=== PATIENT | male | born 1995 | race African-American/Black ===

== ENCOUNTER 2024-04-18 16:27 | Inpatient (IN) ==
[2024-04-18] MEDS: Lactated Ringers SEPSIS* BAG 2,040 ML IV ONE (17:32)
[2024-04-18] MEDS: Acetaminophen IV 1 GM/100ML 1,000 MG/100 ML BAG IV ONE (17:43)
[2024-04-18] MEDS: Piperacillin/Tazobac 3.375 BAG 3.375 GM/100 ML BAG IV ONE (17:43)
[2024-04-18 17:51] LABS: ABS Lymphocytes 1.2 10^3/uL (1.0-4.8); ABS Monocytes 0.7 10^3/uL (0.0-1.1); ABS Neutrophils 10.3 10^3/uL (1.5-7.6); Hematocrit 37.5 % (38-53); Hemoglobin 12.8 g/dL (13.2-16.3); Lymphocyte % 9.9 %; Mean Corpuscular Hemoglobin 31.7 pg (27-33); Mean Corpuscular Hgb Conc 34.2 g/dL (31-36); Mean Corpuscular Volume 92.7 fL (80-97); Mean Platelet Volume 10.1 fL (7.5-11.2); Platelet Count 250 10^3/uL (150-450); Red Blood Count 4.05 10^6/uL (4.06-5.63); Red Cell Distribution Width 14.4 % (12-17); White Blood Count 12.2 10^3/uL (3.6-10.2)
[2024-04-18] MEDS ORDERED: Vancomycin 1,000 MG in NS 0.9% 250 ml 250 ML IVPB SCH (18:00)
[2024-04-18 18:05] LABS: INR 1.43 (0.85-1.14)
[2024-04-18 18:29] LABS: Urine Appearance Clear; Urine Bilirubin Negative (Negative); Urine Blood Negative (Negative); Urine Color Yellow; Urine Glucose Negative (Negative); Urine Ketones 1+ (Negative); Urine Nitrite Negative (Negative); Urine Protein 1+ (>=30 mg/dL) (Negative); Urine Specific Gravity 1.024 (1.002-1.030); Urine Urobilinogen 2+ (Negative)
[2024-04-18 18:30] LABS: Anion Gap 11 mmol/L (2-16); Blood Urea Nitrogen 12 mg/dL (6-24); C Reactive Protein 29.47 mg/L (<8.01); CO2 Carbon Dioxide 24 mmol/L (22-32); Chloride 94 mmol/L (101-111); Creatinine, Serum 1.01 mg/dL (0.67-1.17); Glucose 74 mg/dL (70-100); Potassium 3.5 mmol/L (3.5-5.0); Sodium 129 mmol/L (135-145); Urine Bacteria Absent /HPF (Absent); Urine Red Blood Cell Trace(0-2/hpf) /HPF (0-Trace); Urine Squamous Epithelial Cell Present /HPF (Absent); Urine White Blood Cell Trace(0-5/hpf) /HPF (0-Trace); eGFR CKD-EPI 102.6 (>60)
[2024-04-18 18:38] LABS: ALT 31 U/L (7-52); AST 73 U/L (13-39); Albumin 4.1 g/dL (3.2-5.2); Albumin/Globulin Ratio 0.7 (1-3); Alkaline Phosphatase 45 U/L (35-149); Lipase < 10 U/L (11.0-82.0); Magnesium 0.9 mg/dL (1.9-2.7); Total Bilirubin 3.9 mg/dL (0.2-1.0); Total Protein 10.1 g/dL (6.4-8.9)
[2024-04-18] MEDS: Iohexol 350 (CONTRAST) 500 ML MDV IV ONE (18:57)
[2024-04-18 19:26] LABS: High Sensitivity Troponin 1 Hr 6 pg/mL (<20)
[2024-04-18] MEDS: Magnesium Sulfate 2 gm BAG 2 GM/50 ML BAG IVPB ONE (19:38)
[2024-04-18] MEDS: Vancomycin 1000 MG in NS 0.9% 250 ML IVPB ONE (19:43)
[2024-04-18] MEDS: Lactated Ringers 1000 ml BAG 1,000 ML IV ONE (22:58)
[2024-04-19] MEDS: Enoxaparin 40 MG/0.4 ML SYR SUBCUT SCH (00:43)
[2024-04-19] MEDS: Lactated Ringers 1000 ml BAG 1,000 ML IV SCH (01:37)
[2024-04-19] MEDS: cefTRIAXone 2 gm/50 mL D5W 2 GM/50 ML BAG IV SCH (01:43)
[2024-04-19] MEDS: Acetaminophen IV 1 GM/100ML 1,000 MG/100 ML BAG IV SCH (01:57)
[2024-04-19] MEDS: Magnesium Sulf 4 GM/100 ML IV 4,000 MG/100 ML BAG IVPB ONE (08:37)
[2024-04-19 09:35] LABS: Creatinine, Serum 0.9 mg/dL (0.67-1.17); Magnesium 1.3 mg/dL (1.9-2.7); Potassium 3.9 mmol/L (3.5-5.0); eGFR CKD-EPI 117.8 (>60)
[2024-04-19 12:25] LABS: Hematocrit 36.7 % (38-53); Hemoglobin 11.9 g/dL (13.2-16.3); Mean Corpuscular Hemoglobin 30.6 pg (27-33); Mean Corpuscular Hgb Conc 32.5 g/dL (31-36); Mean Corpuscular Volume 94.2 fL (80-97); Mean Platelet Volume 10.3 fL (7.5-11.2); Platelet Count 205 10^3/uL (150-450); Red Cell Distribution Width 14.8 % (12-17); White Blood Count 11.3 10^3/uL (3.6-10.2)
[2024-04-19 13:04] LABS: ABS Lymphocytes 5.3 10^3/uL (1.0-4.8); ABS Monocytes 0.9 10^3/uL (0.0-1.1); ABS Neutrophils 5.1 10^3/uL (1.5-7.6); ABS Nucleated RBC 0.07 10^3/ul; Lymphocyte % 46.6 %; Nucleated Red Blood Cells % 0.6 %/100WBC (0.0-0.8); RBC Morphology Normal (Normal)
[2024-04-19] MEDS: metroNIDAZOLE IV 500 MG/100ML 500 MG/100 ML BAG IVPB SCH (13:12)
[2024-04-19] MEDS: NF:Bictegravir/Emtricit/Tenofov 1 TABLET PO SCH (13:17)
[2024-04-19 17:40] LABS: Hepatitis C Antibody Reactive (Negative)
[2024-04-19] MEDS: PEG 3000 GI LAVAGE 1 GALLON PO ONE (17:46)
[2024-04-19 18:23] LABS: Albumin 3.2 g/dL (3.2-5.2); Albumin/Globulin Ratio 0.7 (1-3); Direct Bilirubin 0.7 mg/dL (0.03-0.18); Globulin 4.8 g/dL (2-4); Indirect Bilirubin 2.4 mg/dL (0.3-1.0); Total Bilirubin 3.1 mg/dL (0.2-1.0)
[2024-04-20] MEDS: cefTRIAXone 2 gm/50 mL D5W 2 GM/50 ML BAG IV SCH (03:01)
[2024-04-20 05:51] LABS: Hematocrit 29.9 % (38-53); Mean Corpuscular Hemoglobin 31.2 pg (27-33); Mean Corpuscular Hgb Conc 33.3 g/dL (31-36); Mean Corpuscular Volume 93.7 fL (80-97); Mean Platelet Volume 10.1 fL (7.5-11.2); Platelet Count 191 10^3/uL (150-450); Red Blood Count 3.19 10^6/uL (4.06-5.63); Red Cell Distribution Width 14.8 % (12-17); White Blood Count 9.2 10^3/uL (3.6-10.2)
[2024-04-20 06:06] LABS: Albumin 2.8 g/dL (3.2-5.2); Albumin/Globulin Ratio 0.6 (1-3); Calcium 7.8 mg/dL (8.6-10.3); Creatinine, Serum 0.77 mg/dL (0.67-1.17); Globulin 4.4 g/dL (2-4); Magnesium 1.6 mg/dL (1.9-2.7); Potassium 3.5 mmol/L (3.5-5.0); Total Bilirubin 1.7 mg/dL (0.2-1.0); Total Protein 7.2 g/dL (6.4-8.9); eGFR CKD-EPI 123.5 (>60)
[2024-04-20 08:36] LABS: ABS Lymphocytes 3.4 10^3/uL (1.0-4.8); ABS Monocytes 0.6 10^3/uL (0.0-1.1); ABS Neutrophils 5.1 10^3/uL (1.5-7.6); ABS Nucleated RBC 0.02 10^3/ul; Eosinophil % 0.1 %; Lymphocyte % 36.8 %; Nucleated Red Blood Cells % 0.3 %/100WBC (0.0-0.8); RBC Morphology Normal (Normal)
[2024-04-20] MEDS: Magnesium Sulfate 2 gm BAG 2 GM/50 ML BAG IVPB ONE (09:38)
[2024-04-20] MEDS ORDERED: Lidocaine 2% PF 5 ML VIAL ONE (12:26)
[2024-04-20] MEDS ORDERED: Propofol 10 MG/ML 20 ML BTL ONE (13:20)
[2024-04-20 17:18] LABS: % CD3 84 % (58-86); % CD4 21 % (32-64); % CD8 60 % (15-40); 4/8 H/S Ratio 0.4 (>=0.9); CD3 2018 cells/mcL (550-2202); CD4 507 cells/mcL (365-1437); CD8 1434 cells/mcL (171-846)
[2024-04-20 18:57] LABS: Adenovirus F40/41 Negative (Negative); Astrovirus Negative (Negative); Cryptosporidium species Negative (Negative); Cyclospora cayetanensis Negative (Negative); Entamoeba histolytica Negative (Negative); Enteroaggregative E.coli(EAEC) Negative (Negative); Enteropathogenic Ecoli(EPEC) Negative (Negative); Enterotoxigenic Ecoli(ETEC) Negative (Negative); Norovirus GI/GII Negative (Negative); Plesiomonas shigelloides Negative (Negative); Salmonella species Negative (Negative); Sapovirus Negative (Negative); Shiga toxin producing E. coli Negative (Negative); Shigella/Enteroinvasive E.coli Positive (Negative); Specimen Source STOOL; Vibrio cholerae Negative (Negative); Yersinia species Negative (Negative)
[2024-04-21 05:51] LABS: Hematocrit 26.7 % (38-53); Mean Corpuscular Hemoglobin 31.7 pg (27-33); Mean Corpuscular Hgb Conc 33.8 g/dL (31-36); Mean Corpuscular Volume 93.8 fL (80-97); Mean Platelet Volume 9.9 fL (7.5-11.2); Platelet Count 218 10^3/uL (150-450); Red Blood Count 2.84 10^6/uL (4.06-5.63); Red Cell Distribution Width 14.3 % (12-17); White Blood Count 7.9 10^3/uL (3.6-10.2)
[2024-04-21 06:06] LABS: Albumin 2.7 g/dL (3.2-5.2); Albumin/Globulin Ratio 0.6 (1-3); Calcium 7.9 mg/dL (8.6-10.3); Creatinine, Serum 0.75 mg/dL (0.67-1.17); Globulin 4.2 g/dL (2-4); Magnesium 1.6 mg/dL (1.9-2.7); Potassium 4.2 mmol/L (3.5-5.0); Total Bilirubin 0.7 mg/dL (0.2-1.0); Total Protein 6.9 g/dL (6.4-8.9); eGFR CKD-EPI 124.5 (>60)
[2024-04-21 07:28] LABS: ABS Lymphocytes 2.8 10^3/uL (1.0-4.8); ABS Monocytes 0.7 10^3/uL (0.0-1.1); ABS Neutrophils 4.4 10^3/uL (1.5-7.6); Eosinophil % 0.2 %; Lymphocyte % 35.7 %; RBC Morphology Normal (Normal)
[2024-04-21] MEDS: Magnesium Sulfate 2 gm BAG 2 GM/50 ML BAG IVPB ONE (11:11)
[2024-04-21 14:11] VITALS: BP 115/53
[2024-04-21 14:37] LABS: Chlamydia trachomatis NAA Negative (Negative); Neisseria gonorrhoeae (GC) NAA Negative (Negative)
[2024-04-21 23:51] LABS: Helicobacter pylori Result Not Detected; Specimen Source STOOL
[2024-04-22 14:12] LABS: CMV DNA DETECT/QT, P Undetected IU/mL (Undetected)
== END 2024-04-21 16:20 | disposition home or self-care (01) | DRG 720 ==
LOC: ED 16:27 → EDHOLD 16:27 → SUATTDRO 23:09 → EDHOLD 04-19 09:03 → MEDTELE 04-19 09:09
PROVIDERS: ADMIT Student in an Organized Health Care Education/Training Program; ATTEND Internal Medicine